=== PATIENT | female | born 1995 | race Caucasian/White ===

== ENCOUNTER 2018-06-21 20:04 | Outpatient (CLI) | payer MEDICAID ==
[~2018-06-21] VITALS: Ht 160 cm; Wt 83.2 kg
[~2018-06-21 20:04] MED LIST: PNV-DHA PLUS1 SGL PO; PRENATAL1 TA1 PO; SLOW FE45 MG PO; TUMS500 MG PO
[2018-06-21 20:30] VITALS: BP 102/52; PULSE 70; TEMP 98.1
[2018-06-21 20:45] VITALS: BP 102/52; PULSE 70; TEMP 98.1
[2018-06-21] MEDS ORDERED: LEXAPRO 10MG10 MG PO (21:29)
== END 2018-06-21 22:05 | disposition home or self-care (01) ==
LOC: LDRO 20:04
DX: O62.9 Abnormality of forces of labor, unspecified (principal); O99.89 Other specified diseases and conditions complicating pregnancy, childbirth and the puerperium; M54.9 Dorsalgia, unspecified; Z3A.36 36 weeks gestation of pregnancy

== ENCOUNTER 2021-10-11 11:56 | Outpatient (CLI) | payer MEDICAID ==
[~2021-10-11] VITALS: Ht 160 cm; Wt 89.5 kg
[~2021-10-11 11:56] MED LIST changes: +CONCEPT DHA1 CAP PO; +LEXAPRO 10MG10 MG PO; +MOTRIN 800800 MG/TAB PO; +PERCOCET 325 MG1 TA2 PO; +TUMS500 MG
--- NOTE | 2021-10-11 12:30 | NUR ---
1205: PT. AMBULATORY TO UNIT WITH SUPPORT PERSON FOR C/O OF NAUSEA, BACK PAIN, CRAMPING THAT STARTED LAST NIGHT (10/10) AROUND 0. STATES SHE DIDN'T SLEEP AT ALL LAST NIGHT BECAUSE SHE'S "NOT DOING WELL". PT. ESCORTED TO LR5 AND CLEAN GOWN ON. ORIENTED TO ROOM, VITAL SIGNS OBTAINED, EFM/TOCO APPLIED, ASSESSMENTS COMPLETED AND POC DISCUSSED. NO VAGINAL BLEEDING, LEAKING OF FLUID. + MOVEMENT AND CTX BEING FELT. IRREGULAR CTX PRESENT ON TOCO. WILL CONTINUE TO MONITOR PT
[2021-10-11 12:40] VITALS: BP 114/68; PULSE 97; TEMP 98.1
--- NOTE | 2021-10-11 13:53 | NUR ---
1337: DISCHARGE PER DR. GONZALEZ WENT OVER DC PAPERWORK WITH PT. PT. STATES SHE HAS NO QUESTIONS/CONCERNS AT THIS TIME. INFORMED HER TO CONTACT US WITH ANY QUESTIONS/CONCERNS. SHE VERBALIZES UNDERSTANDING. THIS RN WALKED PT AND SPOUSE TO FRONT OF UNIT. PT. IN STABLE CONDITION
== END 2021-10-11 13:37 | disposition home or self-care (01) ==
LOC: LDRO 11:56
DX: O26.893 Other specified pregnancy related conditions, third trimester (principal); R25.2 Cramp and spasm; M54.50 Low back pain, unspecified; R11.0 Nausea; Z3A.37 37 weeks gestation of pregnancy

== ENCOUNTER 2021-10-15 16:37 | Outpatient (CLI) | payer MEDICAID ==
[~2021-10-15] VITALS: Ht 157.5 cm; Wt 89.0 kg
--- NOTE | 2021-10-15 16:40 | NUR ---
Presents to labor and delivery. Sent over by office to be monitored.BPP 6\8.
[2021-10-15 17:00] VITALS: BP 111/68; PULSE 81; TEMP 98.1
[2021-10-15 17:30] VITALS: BP 134/92; PULSE 85
--- NOTE | 2021-10-15 17:30 | NUR ---
Rests in bed, alert. Let her know that Dr. Rodriguez said that she can go home. States would like to talk with Dr. Rodriguez. Let her know that she is busy right now, but I would let her know. She will come in after she is through with another patient.
[2021-10-15] MEDS ORDERED: NATURAL IRON65 MG PO (22:36)
[2021-10-15] MEDS ORDERED: TUMS EXTRA STR750 MG (22:37)
== END 2021-10-15 17:45 | disposition home or self-care (01) ==
LOC: LDRO 16:37 → LDR 16:40 → LDRO 17:45
DX: Z34.93 Encounter for supervision of normal pregnancy, unspecified, third trimester (principal); Z3A.38 38 weeks gestation of pregnancy
CPT/HCPCS: OP

== ENCOUNTER 2021-10-15 21:17 | Inpatient (IN) | payer MEDICAID ==
[~2021-10-15] VITALS: Ht 157.5 cm; Wt 88.6 kg
[2021-10-15 20:30] VITALS: BP 113/58; PULSE 108; TEMP 98.2
[2021-10-15 21:00] VITALS: BP 123/68; PULSE 100
[2021-10-15 21:30] VITALS: BP 116/67; PULSE 88
[2021-10-15] MEDS ORDERED: NATURAL IRON65 MG PO (22:36)
[2021-10-15] MEDS ORDERED: TUMS EXTRA STR750 MG (22:37)
[2021-10-15 23:00] VITALS: TEMP 98.8
--- NOTE | 2021-10-15 23:30 | NUR ---
2330- 18G IV PLACED BY JERARDO MIDDLETON CHARGE IN PT'S LEFT WRIST 2335- 2G ANCEF PUSHED OVER 10MIN
[2021-10-16] VITALS (35 sets, daily range): BP systolic 86–141; BP diastolic 47–84; PULSE 66–114; TEMP 97.8–98.2
--- NOTE | 2021-10-16 00:15 | NUR ---
TOCO ADJUSTED. VISIBLE BREAKS IN FHTS ARE OBSERVED AT 0003 WHILE MOTHER IS SITTING UPRIGHT IN BED, RN AT BEDSIDE TO ADJUST MONITOR. DR. LAY CALLED AT 0015 FOR STATUS UPDATE ON PATIENT AND GAVE VERBAL ORDER TO START 1G ANCEF Q8 FROM LAST DOSE
--- NOTE | 2021-10-16 00:30 | NUR ---
TOCO ADJUSTED PT DENIES FEELING CONTRACTIONS. ABDOMEN PALPATES SOFT
--- NOTE | 2021-10-16 01:00 | NUR ---
TOCO ADJUSTED. PT APPEARS TO BE SLEEPING BUT AWAKES TO VERBAL COMMANDS. PT DENIES FEELING CONTRACTIONS. ABDOMEN PALPATES SOFT. PT DENIES FURTHER NEEDS
--- NOTE | 2021-10-16 01:30 | NUR ---
PT APPEARS TO BE SLEEPING BUT RESPONDS TO VERBAL COMMANDS. RN ADJUSTS TOCO. PT DENIES FURTHER NEEDS
[2021-10-16 01:35] LABS: BASO % 0.2 % (0.0-2.0); EOS # 0.1 K/mm3 (0.0-0.7); EOS % 0.5 % (0-4.0); GRAN # 8.8 K/mm3 (1.4-6.5); GRAN % 76.3 % (42.2-75.2); HEMOGLOBIN 10.4 g/dl (12.5-16.0); LYMPH # 1.9 K/mm3 (1.2-3.4); LYMPH % 16.7 % (20.0-51.0); MEAN CELL VOLUME 86 fl (80.0-100.0); MEAN CORPUSCULAR HEMOGLOBIN 27 pg (27.0-31.0); MEAN CORPUSCULAR HGB CONC 31 g/dl (33.0-37.0); MEAN PLATELET VOLUME 11.6 fl (7.4-10.4); MONO # 0.7 K/mm3 (0.1-0.6); MONO % 5.8 % (1.7-9.3); PLATELET COUNT 230 K/mm3 (130-400); RED BLOOD COUNT 3.85 M/mm3 (4.10-5.30); REDCELL DISTRIBUTION WIDTH-CV 14.6 % (11.5-14.5)
[2021-10-16 01:38] LABS: HEMATOCRIT 33.2 % (37.0-47.0)
--- NOTE | 2021-10-16 02:45 | NUR ---
PT REPORTS FEELING UNCOMFORTABLE FROM CONTRACTIONS AND IS BREATHING THROUGH THEM. PT REQUESTS EPIDURAL AT THIS TIME. PT DENIES CERVICAL EXAM UNTIL AFTER THE EPIDURAL
--- NOTE | 2021-10-16 02:49 | NUR ---
RN CALLED KATERIN LIZARRAGA AND REQUESTED EPIDURAL FOR PATIENT. MARINE RAILWAY OPERATOR STATED SHE WOULD BE RIGHT IN
--- NOTE | 2021-10-16 02:55 | NUR ---
500ML LR BOLUS STARTED FOR EPIDURAL
--- NOTE | 2021-10-16 03:17 | NUR ---
KATERIN LIZARRAGA PRESENT AT BEDSIDE
--- NOTE | 2021-10-16 03:22 | NUR ---
PT UP IN POSITION FOR EPIDURAL. SINGLE SHOT PERFORMED AT THIS TIME
--- NOTE | 2021-10-16 03:25 | NUR ---
EPIDURAL TEST DOSE AT THIS TIME
--- NOTE | 2021-10-16 04:00 | NUR ---
0350- FOLLOW CATHETER PLACED AT THIS TIME 0352- FOLLOWING STERILE VAGINAL EXAM, BABE HAD A VARIABLE DECELERATION AND MOTHER'S BP DROPPED TO 98/49. RN HELPED PT TURN TO LEFT LATERAL SIDE AND LR BOLUS STARTED AT THIS TIME. 0355-BP RETAKEN AND IT IS 86/74. BABE HAS HAD SEVERAL VARIABLE DECELERATIONS.RN AT BEDSIDE. PT DENIES FEELING LIGHTHEADED OR DIZZY. RN INFORMED KATERIN LIZARRAGA OF PT'S BP DROP AND [employer] LOAN REPRESENTATIVE GAVE VERBAL ORDER TO GIVE 10MG IVP EPHEDRIN Q5 MIN UNTIL BP >100/50. 0358- 10MG IVP EPHEDRINE GIVEN AT THIS TIME.
--- NOTE | 2021-10-16 06:12 | NUR ---
DR. LAY GAVE VERBAL ORDERS TO INCREASE PITOCIN TO 12MUNITS/MIN
--- NOTE | 2021-10-16 06:30 | NUR ---
0630- at bedside assessing patient and FHR strip. SVE per physician 790/-1. Patient repositioned to with RLS. Plan of care discussed. 0650-This RN at bedside to reposition patient. Patient reports increased pressure. SVE 10/100/+1. at bedside assessing patient. 0651-Patient prepared for vaginal delivery. Patient is instructed to push with ctx. 0700-Spontaneous vaginal delivery of viable female . NC x2, delivered and reduced after delivery. Infant placed on mother's abdomen, dried and stimualted. Elias, EMI assumes care of . 0717-Hemabate dose given per . See EMAR. 0730-Manual delivery of placenta. Curette by . Placenta to pathology per provider. Fundus firm, scant bleeding by . Pitocin bolus started per protocol. Perinuem intact. Ice pack applied. Patient repositioned. Plan of care discussed.
[2021-10-17] VITALS: BP 102/58; PULSE 90; TEMP 97.8
[2021-10-17 02:46] VITALS: BP 115/69; PULSE 80; TEMP 98.1
[2021-10-17 07:15] VITALS: BP 114/67; PULSE 92; TEMP 98.3
[2021-10-17 11:00] LABS: BASO % 0.2 % (0.0-2.0); EOS # 0.1 K/mm3 (0.0-0.7); GRAN # 8.6 K/mm3 (1.4-6.5); GRAN % 80.8 % (42.2-75.2); LYMPH # 1.4 K/mm3 (1.2-3.4); LYMPH % 12.7 % (20.0-51.0); MEAN CELL VOLUME 84 fl (80.0-100.0); MEAN CORPUSCULAR HGB CONC 32 g/dl (33.0-37.0); MEAN PLATELET VOLUME 11.2 fl (7.4-10.4); MONO # 0.5 K/mm3 (0.1-0.6); MONO % 4.8 % (1.7-9.3); PLATELET COUNT 190 K/mm3 (130-400); RED BLOOD COUNT 3.37 M/mm3 (4.10-5.30); REDCELL DISTRIBUTION WIDTH-CV 14.6 % (11.5-14.5)
[2021-10-17 11:02] LABS: HEMATOCRIT 28.3 % (37.0-47.0); HEMOGLOBIN 9.1 g/dl (12.5-16.0); MEAN CORPUSCULAR HEMOGLOBIN 27 pg (27.0-31.0)
[2021-10-17] MEDS ORDERED: IBU800 M1 PO (11:23)
== END 2021-10-17 12:50 | disposition home or self-care (01) | DRG 807 ==
LOC: LDR 21:17 → OB 10-16 11:20
PROVIDERS: Student in an Organized Health Care Education/Training Program; ADMIT Obstetrics & Gynecology
PROC: 10E0XZZ Delivery of Products of Conception, External Approach (ICD-10-PCS; principal; 2021-10-16)
PROC: 10D17Z9 Manual Extraction of Products of Conception, Retained, Via Natural or Artificial Opening (ICD-10-PCS; 2021-10-16)
PROC: 10907ZC Drainage of Amniotic Fluid, Therapeutic from Products of Conception, Via Natural or Artificial Opening (ICD-10-PCS; 2021-10-16)
PROC: 3E033VJ Introduction of Other Hormone into Peripheral Vein, Percutaneous Approach (ICD-10-PCS; 2021-10-16)
DX: O36.5930 Maternal care for other known or suspected poor fetal growth, third trimester, not applicable or unspecified (principal); Z37.0 Single live birth; O99.824 Streptococcus B carrier state complicating childbirth; O99.214 Obesity complicating childbirth; O99.344 Other mental disorders complicating childbirth; F41.3 Other mixed anxiety disorders; F32.A Depression, unspecified; O99.02 Anemia complicating childbirth; D64.9 Anemia, unspecified; O76 Abnormality in fetal heart rate and rhythm complicating labor and delivery; O74.6 Other complications of spinal and epidural anesthesia during labor and delivery; O74.2 Cardiac complications of anesthesia during labor and delivery; I95.2 Hypotension due to drugs; O69.81X0 Labor and delivery complicated by cord around neck, without compression, not applicable or unspecified; Z3A.38 38 weeks gestation of pregnancy; Z88.0 Allergy status to penicillin; Z23 Encounter for immunization
CPT/HCPCS: J0690; J2590; J7120